=== PATIENT | male | born 1995 | race Caucasian/White ===

== ENCOUNTER → 2024-09-10 10:58 | Outpatient (BNVA) | payer MEDICARE, MEDICAID, SELFPAY | PROVIDERS: PCP Neuromusculoskeletal Medicine & OMM; Referring Provider Neuromusculoskeletal Medicine & OMM; Visit Provider Nurse Practitioner Gerontology | DX: N32.89 Other specified disorders of bladder (principal); R39.9 Unspecified symptoms and signs involving the genitourinary system | CPT/HCPCS: 99215; 81002; 51798 ==